=== PATIENT | female | born 1940 | race African-American/Black ===

== ENCOUNTER 2016-11-05 15:47 | Inpatient (IN) | payer MEDICARE ==
[~2016-11-05] VITALS: Ht 157.5 cm; Wt 83.2 kg
--- NOTE | ~2016-11-05 | CON ---
[place], [place] REPORT OF CONSULTATION NAME: AZIZA SIMPSON UNIT #: [id number] ROOM: 404 DOCTOR: SAMMY BUCKNER DPM BIRTHDATE: [birth year] DOS: 11/06/2016 HISTORY OF PRESENT ILLNESS: The patient is a 76-year-old female with a painful swollen left foot and ankle, which has been bothering her since Saturday morning. The patient states it is worse with weightbearing. Patient has no history of gout. PAST MEDICAL HISTORY: Essential hypertension, hypercholesterolemia, hypercoagulable state, moderate protein calorie malnutrition, tobacco abuse. PAST SURGICAL HISTORY: History of fractured left ankle, surgical fixation of medical hardware. SOCIAL HISTORY: History of smoker, half pack per week. Denies illicit drug use or alcohol. FAMILY HISTORY: Father in the age of the 80s. Mother age 80s, cause, old age. ALLERGIES: None. PHYSICAL EXAMINATION: LOWER EXTREMITY EXAMINATION: Pedal pulses palpable. There is edema to the left ankle and dorsal left foot. Mild increase in temperature. No definitive abscess noted. Tenderness noted upon palpation. DIAGNOSTIC DATA: Results of the ankle views and foot views taken yesterday were unremarkable. The patient has pending CT scan. The patient's WBC today was 7.9. Sed rate was 91. ASSESSMENT: Edema, pain, left ankle, possible ____, possible underlying infection to the joint. PLAN: Evaluation and management discussed with the patient and her . TREATMENT OPTIONS: Due to the WBC within normal range, I do not feel that emergency arthrotomy needs to be performed today. We will await on the results of the CT scan. Discussed the case with Dr. Mckenna who may tap the ankle tomorrow to aspirate ankle to evaluate for any signs of infection. We will monitor the patient's case closely. Discussed the possibility of ankle arthrotomy and I and D with the patient and her . [place], [place] REPORT OF CONSULTATION NAME: AZIZA SIMPSON UNIT #: [id number] ROOM: 404 DOCTOR: SAMMY BUCKNER DPM BIRTHDATE: [birth year] SAMMY BUCKNER DPM CM:CONSTR:REPORT OF CONSULTATION 1241 11/06/16 1915 interface
--- NOTE | ~2016-11-05 | PR ---
[place], [place] PROGRESS NOTE NAME: AZIZA SIMPSON [facility] #: [id number] UNIT #: [id number] ROOM: 404 DOCTOR: DEEPAK LEA III, DPM BIRTHDATE: [birth year] DOS: 11/07/2016 TIME OF DICTATION: 12:31 p.m. SUBJECTIVE: A 76-year-old female seen at bedside for followup and reevaluation of left ankle pain. No new issues. OBJECTIVE: Neurovascular status is unchanged. Negative Homans' and negative calf pain. She does have some swelling appreciated as well as an anterior ankle joint effusion to the left ankle. Pain on palpation of the ankle joint. No gross erythema is noted. No gross signs of infection are noted. NEUROLOGIC: Intact protective sensation. ORTHOPEDIC: Muscle strength is maintained. ASSESSMENT: Possible gout, left ankle. TREATMENT PLANS AND RECOMMENDATIONS: Findings as well as prognosis was discussed in detail with the patient. All questions were answered to her apparent satisfaction. A 76-year-old female seen at bedside for evaluation regarding possible gout to the left ankle. CT exam was negative. Her labs have been essentially normal. Most likely is a gouty attack. She does have some circumferential pain to the ankle joint. I discussed the options. I discussed aspirating the ankle joint to guide treatments and recommendations. The patient is in agreement. PROCEDURE: Sterile prep of the ankle joint was performed using Betadine as well as Hibiclens prep. Using an 18-gauge needle, a 10 mL syringe, aspiration of the ankle joint was performed. Approximately 0.5 mL of bloody-tinged serous fluid was removed from the ankle joint. Fluid was sent for both crystal analysis as well as culture and cell count differential. Band-Aid was applied. The patient tolerated the procedure well. Further recommendations will be placed once cultures and a fluid analysis returns. The patient is in agreement. DEEPAK LEA III, DPM CM:PNTRANS [id number] DEEPAK LEA III, DPM 11/07/16 2335 interface
--- NOTE | ~2016-11-05 | PR ---
[place], [place] PROGRESS NOTE NAME: AZIZA SIMPSON [facility] #: [id number] UNIT #: [id number] ROOM: 404 DOCTOR: DUDLEY CORDOVASAMMY Perez BIRTHDATE: [birth year] DOS: 11/08/2016 SUBJECTIVE: The patient presents for followup of painful swollen left ankle. The patient states she feels much improved at this time. The anterior ankle has no near as much pain as it was 2 days ago. OBJECTIVE: There is decreased edema, decreased erythema, no increased temperature, much improved from my evaluation 2 days ago. The patient's blood cultures were negative. The CT scan revealed mild degenerative changes and soft tissue swelling predominantly along the dorsal medial aspect of the mid foot. No acute fracture or malalignment. The patient's fluid aspiration from the ankle performed by Dr. Mckenna yesterday revealed a WBC of 4050, neutrophils of 92, usually aseptic joint is 50,000 or above. So, in my opinion, the count of 4000 may be early infection or an ____ inflammation. They revealed no fluid crystals. The culture of the fluid Gram stain revealed many white blood cells, no microorganisms seen. The preliminary culture showed no bacterial growth. ASSESSMENT: Edema, pain, improving left ankle probable ____. PLAN: Evaluation and management, discussed treatment options with the patient in detail. We will go ahead and proceed with an MRI of the left ankle to verify no evidence of any suggestion of a septic joint. Discussed with the patient if the WBCs and the fluid tap was 50,000 or above, would indicate a septic joint. I ordered blood work to rule out ____ including an additional uric acid, which had already been performed, but I will like to recheck as the inflammation has gone down, the uric acid count in the blood work could increase after the acute inflammatory situation is starting to resolve. Additionally, we will check RA, GAB, additional sed rate and C-reactive protein. We will proceed with the MRI. Discussed the case via telephone with Dr. De La Rosa and Dr. Mckenna who are in agreement with my treatment plan. If there is an abnormality noted on the MRI, possible ankle arthroscopy to be performed to drain the ankle synovial fluid, but at this time, I did not think an emergent situation is evident in a patient who is clinically improving, which is a very good sign. We will recheck the patient tomorrow to ascertain if any additional treatment needs to be performed. Possible Unna boot application tomorrow if warranted, but again the patient is definitely improving. [place], [place] PROGRESS NOTE NAME: AZIZA SIMPSON Chris UNIT #: [id number] ROOM: [facility] DOCTOR: SAMMY BUCKNER DPM BIRTHDATE: [birth year] SAMMY BUCKNER DPM CM:PNTRANS [id number] SAMMY BUCKNER DPM 11/09/16 0654 interface
--- NOTE | ~2016-11-05 | PR ---
[place], [place] PROGRESS NOTE NAME: AZIZA SIMPSON [facility] #: [id number] UNIT #: [id number] ROOM: 404 DOCTOR: DAVIS GAO DPM BIRTHDATE: [birth year] DOS: 11/09/2016 SUBJECTIVE: The patient presents for followup of an erythematous and swollen left ankle. She states the pain has significantly improved, only minimal tenderness is noted at this time. She is able to move the ankle and the foot much better with less discomfort. OBJECTIVE: Neurovascular status is unchanged. There is only minimal edema noted of left foot and ankle with no erythema, no increased temperature, seems like it is improving nicely at this time. No open areas. Significant improvement noted. Again, her aspiration results were noted. MRI was essentially unremarkable. ASSESSMENT: Synovitis, inflammatory arthritis, left ankle with improving edema and pain. PLAN: Evaluation and management. Discussed with the patient, she is doing much better. So I feel at this time from Podiatry standpoint, she be discharged. I do not think she has a septic joint. She is improving nicely and would recommend following up as an outpatient. If she is still here tomorrow, then we can see her, but at this point, I think her ankle has significantly improved with only minimal residual symptoms. DAVIS GAO DPM CM:PJ [id number] DAVIS GAO DPM 11/09/162127 interface
[~2016-11-05 15:47] MED LIST: ATARAX25 MG PO; LIDEX0.05% T; PREDNISONE20 MG PO
[2016-11-05 15:55] VITALS: BP 137/92
[2016-11-05] MEDS ORDERED: LISINOPRIL20 MG PO (15:56)
[2016-11-05] MEDS ORDERED: WARFARIN SOD5 MG PO (15:56)
[2016-11-05] MEDS ORDERED: ATORVASTATIN CA10 M1 PO (15:56)
[2016-11-05] MEDS ORDERED: Diltiazem180 MG PO (15:57)
[2016-11-05 16:30] LABS: BASO % 0.5 % (0.0-1.0); EOS % 0.1 % (1.0-4.0); HEMATOCRIT 39.7 % (37.0-47.0); HEMOGLOBIN 13.1 g/dl (12.0-16.0); IG # 0.1 10*3/uL (0.0-0.1); LYMPH # 0.9 10*3/uL (1.3-4.4); LYMPH % 10.6 % (27.0-41.0); MEAN CELL VOLUME 87.6 fl (81.0-99.0); MEAN CORPUSCULAR HGB 28.9 pg (27.0-31.0); MEAN PLATELET VOLUME 10.3 fl (9.6-12.3); MONO # 0.9 10*3/uL (0.1-1.0); MONO % 11.2 % (3.0-9.0); NEUT # 6.5 10*3/uL (2.3-7.9); PLATELET COUNT AUTOMATED 213 10*3/uL (130-400); RED BLOOD COUNT 4.53 10*6/uL (4.10-5.10); RED CELL DISTRI WIDTH 15.5 % (0-14.5); WHITE BLOOD COUNT 8.4 10*3/uL (4.8-10.8)
[2016-11-05 16:50] LABS: BILIRUBIN, TOTAL 0.6 mg/dl (0.2-1.0); C-REACTIVE PROTEIN 8.65 MG/DL (0-0.3); MAGNESIUM 1.7 mg/dL (1.5-2.1); POTASSIUM 4.2 mmol/L (3.5-5.1); TOTAL PROTEIN 7.7 gm/dL (6.4-8.2); URIC ACID 5.3 mg/dL (2.6-6.0)
[2016-11-05 20:00] VITALS: BP 131/63
[2016-11-05 20:15] VITALS: BP 131/63
[2016-11-05] MEDS ORDERED: COUMADIN5 M2 PO (21:01)
[2016-11-06] VITALS: BP 126/74
[2016-11-06 08:00] VITALS: BP 136/92
[2016-11-06 08:08] LABS: BASO % 0.5 % (0.0-1.0); EOS % 0.3 % (1.0-4.0); HEMATOCRIT 37.8 % (37.0-47.0); HEMOGLOBIN 12.2 g/dl (12.0-16.0); LYMPH # 1.2 10*3/uL (1.3-4.4); LYMPH % 15.3 % (27.0-41.0); MEAN CELL VOLUME 87.5 fl (81.0-99.0); MEAN CORPUSCULAR HGB 28.2 pg (27.0-31.0); MEAN CORPUSCULAR HGB CONC 32.3 g/dl (33.0-37.0); MEAN PLATELET VOLUME 10.9 fl (9.6-12.3); MONO # 1.1 10*3/uL (0.1-1.0); MONO % 13.8 % (3.0-9.0); NEUT # 5.5 10*3/uL (2.3-7.9); NEUT % 69.8 % (47.0-73.0); PLATELET COUNT AUTOMATED 200 10*3/uL (130-400); RED BLOOD COUNT 4.32 10*6/uL (4.10-5.10); RED CELL DISTRI WIDTH 15.5 % (0-14.5); WHITE BLOOD COUNT 7.9 10*3/uL (4.8-10.8)
[2016-11-06 08:26] LABS: HEMOGLOBIN A1c 6.5 % (4.8-5.6)
[2016-11-06 08:41] LABS: FREE T4 1.17 ng/dl (0.76-1.46); MAGNESIUM 2.1 mg/dL (1.5-2.1); PHOSPHOROUS 2.9 mg/dL (2.5-4.9)
[2016-11-06 08:48] LABS: THYROID STIM HORMONE (HS) 0.386 uIU/ml (0.358-4.75)
[2016-11-06 09:11] LABS: INTERNATIONAL NORM RATIO 3.7 (2.0-3.5); PROTHROMBIN TIME 42.7 SECONDS (9.0-12.4)
[2016-11-06 09:33] LABS: VITAMIN D, 25-HYDROXY 6.4 ng/mL (30-100)
[2016-11-06 09:34] LABS: FOLIC ACID 12.75 ng/mL (>5.38)
[2016-11-06 12:00] VITALS: BP 133/82
[2016-11-06 16:00] VITALS: BP 150/83
[2016-11-06 20:03] VITALS: BP 134/81
[2016-11-07] VITALS: BP 134/75
[2016-11-07 08:00] VITALS: BP 131/83; BP 144/70
[2016-11-07 12:00] VITALS: BP 171/94
[2016-11-07 12:54] LABS: BODY FLUID RBC 48000 /uL; BODY FLUID WBC 4050 /uL
[2016-11-07 13:34] LABS: BF MACROPHAGES 2 %; BF MONOCYTES 6 %; BF NEUTROPHILS 92 %
[2016-11-07 13:37] LABS: BODY FLUID TYPE SYNOVIAL
[2016-11-07 16:00] VITALS: BP 170/91
[2016-11-07 18:49] VITALS: BP 166/90
[2016-11-07 20:00] VITALS: BP 131/62; BP 158/86
[2016-11-08] VITALS: BP 126/90
[2016-11-08 07:30] LABS: ALBUMIN 2.4 gm/dl (3.1-4.5); POTASSIUM 3.7 mmol/L (3.5-5.1)
[2016-11-08 07:32] LABS: INTERNATIONAL NORM RATIO 1.8 (2.0-3.5); PROTHROMBIN TIME 19.8 SECONDS (9.0-12.4)
[2016-11-08 07:35] LABS: BILIRUBIN, TOTAL 0.7 mg/dl (0.2-1.0)
[2016-11-08 08:00] VITALS: BP 153/79
[2016-11-08 12:00] VITALS: BP 147/65
[2016-11-08 14:07] LABS: URIC ACID 2.4 mg/dL (2.6-6.0)
[2016-11-08 14:09] LABS: C-REACTIVE PROTEIN 22.4 MG/DL (0-0.3)
[2016-11-08 16:00] VITALS: BP 173/96
[2016-11-08 18:24] VITALS: BP 152/84
[2016-11-08 20:00] VITALS: BP 164/93
[2016-11-09] VITALS: BP 168/98
[2016-11-09 04:00] VITALS: BP 163/96
[2016-11-09 06:14] LABS: RHEUMATOID ARTHRITIS FACTOR 22.8 IU/mL (0.0-13.9)
[2016-11-09 07:05] LABS: POTASSIUM 3.3 mmol/L (3.5-5.1)
[2016-11-09 08:00] VITALS: BP 151/92
[2016-11-09 12:00] VITALS: BP 149/98
[2016-11-09] MEDS ORDERED: ROBAXIN-750750 MG PO (14:15)
[2016-11-09] MEDS ORDERED: VOLTAREN GEL1% T (14:15)
[2016-11-09] MEDS ORDERED: ACETAMINOPHEN-H1 TA2 PO (14:15)
== END 2016-11-09 15:48 | disposition home or self-care (01) | DRG 871 ==
LOC: ED 15:47 → EDHOLD 18:21 → 4E 18:21
PROVIDERS: Emergency Medicine; Internal Medicine; Internal Medicine Hospice and Palliative Medicine; Podiatrist; Podiatrist Foot & Ankle Surgery
PROC: 0S9G3ZX Drainage of Left Ankle Joint, Percutaneous Approach, Diagnostic (ICD-10-PCS; principal; 2016-11-07)
DX: A41.9 Sepsis, unspecified organism (principal); N17.0 Acute kidney failure with tubular necrosis; E44.0 Moderate protein-calorie malnutrition; D68.59 Other primary thrombophilia; M00.9 Pyogenic arthritis, unspecified; R65.20 Severe sepsis without septic shock; M65.9 Synovitis and tenosynovitis, unspecified; I10 Essential (primary) hypertension; E78.00 Pure hypercholesterolemia, unspecified; F17.210 Nicotine dependence, cigarettes, uncomplicated; M13.879 Other specified arthritis, unspecified ankle and foot; D72.810 Lymphocytopenia; R73.9 Hyperglycemia, unspecified; E55.9 Vitamin D deficiency, unspecified; Z71.6 Tobacco abuse counseling; Z79.01 Long term (current) use of anticoagulants; Z79.899 Other long term (current) drug therapy

== ENCOUNTER 2016-11-12 19:08 | Inpatient (IN) | payer MEDICARE ==
[~2016-11-12] VITALS: Ht 158.7 cm; Wt 85.5 kg
[~2016-11-12 19:08] MED LIST changes: +ACETAMINOPHEN-H1 TA2 PO; +ATORVASTATIN CA10 M1 PO; +COUMADIN5 M2 PO; +Diltiazem180 MG PO; +LISINOPRIL20 MG PO; +ROBAXIN-750750 MG PO; +VOLTAREN GEL1% T; +WARFARIN SOD5 MG PO
[2016-11-12 19:17] VITALS: BP 163/84
[2016-11-12 20:18] LABS: BASO # 0.1 10*3/uL (0.0-0.1); BASO % 0.4 % (0.0-1.0); EOS # 0.1 10*3/uL (0.0-0.4); EOS % 0.7 % (1.0-4.0); HEMATOCRIT 34.4 % (37.0-47.0); HEMOGLOBIN 11.1 g/dl (12.0-16.0); IG # 0.1 10*3/uL (0.0-0.1); LYMPH % 7.9 % (27.0-41.0); MEAN CELL VOLUME 88.2 fl (81.0-99.0); MEAN CORPUSCULAR HGB 28.5 pg (27.0-31.0); MEAN CORPUSCULAR HGB CONC 32.3 g/dl (33.0-37.0); MEAN PLATELET VOLUME 10.9 fl (9.6-12.3); MONO # 1.1 10*3/uL (0.1-1.0); MONO % 9.4 % (3.0-9.0); NEUT # 9.8 10*3/uL (2.3-7.9); NEUT % 80.7 % (47.0-73.0); PLATELET COUNT AUTOMATED 239 10*3/uL (130-400); RED CELL DISTRI WIDTH 15.9 % (0-14.5); WHITE BLOOD COUNT 12.1 10*3/uL (4.8-10.8)
[2016-11-12 20:27] LABS: PROTHROMBIN TIME 21.9 SECONDS (9.0-12.4)
[2016-11-12 20:35] LABS: ALBUMIN 2.2 gm/dl (3.1-4.5); BILIRUBIN, TOTAL 0.4 mg/dl (0.2-1.0); POTASSIUM 3.8 mmol/L (3.5-5.1); TOTAL PROTEIN 7.7 gm/dL (6.4-8.2)
[2016-11-13] VITALS: BP 178/88
[2016-11-13 06:15] LABS: BASO % 0.3 % (0.0-1.0); EOS # 0.1 10*3/uL (0.0-0.4); EOS % 0.8 % (1.0-4.0); HEMATOCRIT 32.7 % (37.0-47.0); HEMOGLOBIN 10.6 g/dl (12.0-16.0); IG # 0.1 10*3/uL (0.0-0.1); LYMPH # 1.2 10*3/uL (1.3-4.4); LYMPH % 10.4 % (27.0-41.0); MEAN CELL VOLUME 87.9 fl (81.0-99.0); MEAN CORPUSCULAR HGB 28.5 pg (27.0-31.0); MEAN CORPUSCULAR HGB CONC 32.4 g/dl (33.0-37.0); MEAN PLATELET VOLUME 11.1 fl (9.6-12.3); MONO # 1.2 10*3/uL (0.1-1.0); MONO % 9.8 % (3.0-9.0); NEUT # 9.3 10*3/uL (2.3-7.9); PLATELET COUNT AUTOMATED 244 10*3/uL (130-400); RED BLOOD COUNT 3.72 10*6/uL (4.10-5.10); RED CELL DISTRI WIDTH 15.6 % (0-14.5); WHITE BLOOD COUNT 11.9 10*3/uL (4.8-10.8)
[2016-11-13 06:39] LABS: ALBUMIN 2.2 gm/dl (3.1-4.5); BILIRUBIN, TOTAL 0.6 mg/dl (0.2-1.0); MAGNESIUM 1.9 mg/dL (1.5-2.1); POTASSIUM 3.9 mmol/L (3.5-5.1); TOTAL PROTEIN 7.3 gm/dL (6.4-8.2)
[2016-11-13 06:48] LABS: PROTHROMBIN TIME 22.5 SECONDS (9.0-12.4)
[2016-11-13 08:00] VITALS: BP 154/84
[2016-11-13 13:07] VITALS: BP 154/84
[2016-11-13 16:00] VITALS: BP 135/83
[2016-11-13 20:00] VITALS: BP 152/86
[2016-11-14] VITALS: BP 151/89
[2016-11-14 06:15] LABS: BASO % 0.4 % (0.0-1.0); EOS # 0.1 10*3/uL (0.0-0.4); EOS % 0.6 % (1.0-4.0); HEMATOCRIT 30.6 % (37.0-47.0); HEMOGLOBIN 9.9 g/dl (12.0-16.0); IG # 0.1 10*3/uL (0.0-0.1); LYMPH # 1.4 10*3/uL (1.3-4.4); LYMPH % 12.8 % (27.0-41.0); MEAN CELL VOLUME 88.7 fl (81.0-99.0); MEAN CORPUSCULAR HGB 28.7 pg (27.0-31.0); MEAN CORPUSCULAR HGB CONC 32.4 g/dl (33.0-37.0); MEAN PLATELET VOLUME 11.1 fl (9.6-12.3); MONO # 1.2 10*3/uL (0.1-1.0); MONO % 10.8 % (3.0-9.0); NEUT # 7.9 10*3/uL (2.3-7.9); NEUT % 74.4 % (47.0-73.0); PLATELET COUNT AUTOMATED 239 10*3/uL (130-400); RED BLOOD COUNT 3.45 10*6/uL (4.10-5.10); RED CELL DISTRI WIDTH 15.7 % (0-14.5); WHITE BLOOD COUNT 10.7 10*3/uL (4.8-10.8)
[2016-11-14 06:23] LABS: BUN 11 mg/dl (7-24); CARBON DIOXIDE 29 mmol/L (21-32); CHLORIDE 105 mmol/L (98-107); EST GLOM FILT AFRICAN AMERICAN > 60 ml/min; GLUCOSE 100 mg/dL (65-99); POTASSIUM 3.6 mmol/L (3.5-5.1); SODIUM 142 mmol/L (136-145)
[2016-11-14 07:06] LABS: INTERNATIONAL NORM RATIO 2.2 (2.0-3.5); PROTHROMBIN TIME 24.1 SECONDS (9.0-12.4)
[2016-11-14 08:00] VITALS: BP 156/92
[2016-11-14 12:00] VITALS: BP 150/88
[2016-11-14 16:00] VITALS: BP 141/74
[2016-11-14 20:00] VITALS: BP 134/83
[2016-11-15] VITALS: BP 156/91
[2016-11-15 08:00] VITALS: BP 139/89
[2016-11-15 08:57] LABS: PROTHROMBIN TIME 46.7 SECONDS (9.0-12.4)
[2016-11-15] MEDS ORDERED: VITAMIN D50000 I3 PO (11:00)
[2016-11-15] MEDS ORDERED: PREDNISONE50 MG PO (11:00)
[2016-11-15] MEDS ORDERED: COLCHICINE0.6 M1 PO (12:58)
== END 2016-11-15 13:08 | disposition home or self-care (01) | DRG 871 ==
LOC: ED 19:08 → 4E 22:15 → EDHOLD 22:15 → 4E 23:38
PROVIDERS: Internal Medicine; Internal Medicine Hospice and Palliative Medicine; Physician Assistant
DX: A41.9 Sepsis, unspecified organism (principal); N17.0 Acute kidney failure with tubular necrosis; E43 Unspecified severe protein-calorie malnutrition; D64.9 Anemia, unspecified; D68.59 Other primary thrombophilia; L03.113 Cellulitis of right upper limb; M02.331 Reiter's disease, right wrist; R65.20 Severe sepsis without septic shock; I10 Essential (primary) hypertension; E78.00 Pure hypercholesterolemia, unspecified; F17.210 Nicotine dependence, cigarettes, uncomplicated; R79.82 Elevated C-reactive protein (CRP); E66.09 Other obesity due to excess calories; E55.9 Vitamin D deficiency, unspecified; Z68.33 Body mass index [BMI] 33.0-33.9, adult; M13.80 Other specified arthritis, unspecified site

== ENCOUNTER 2016-12-27 11:54 | Emergency (ER) | payer MEDICARE ==
[~2016-12-27] VITALS: Ht 157.4 cm; Wt 83.9 kg
[~2016-12-27 11:54] MED LIST changes: +COLCHICINE0.6 M1 PO; +PREDNISONE50 MG PO; +VITAMIN D50000 I3 PO
[2016-12-27] MEDS ORDERED: COLCHICINE0.6 M2 PO (12:55)
[2016-12-27] MEDS ORDERED: COLCHICINE0.6 M1 PO (12:55)
== END 2016-12-27 13:11 | disposition home or self-care (01) ==
LOC: ED 11:54
DX: M10.9 Gout, unspecified (principal); M25.532 Pain in left wrist; F17.200 Nicotine dependence, unspecified, uncomplicated; Z79.01 Long term (current) use of anticoagulants

== ENCOUNTER 2019-02-21 12:52 | Inpatient (IN) | payer MEDICARE ==
[~2019-02-21] VITALS: Ht 157.4 cm; Wt 79.4 kg
--- NOTE | ~2019-02-21 | CON ---
[place], [place] REPORT OF CONSULTATION NAME: AZIZA SIMPSON UNIT #: [id number] ROOM: 512 DOCTOR: THANIA SIMPSON DO BIRTHDATE: [birth year] DOS: 02/23/2019 REASON FOR CONSULTATION: Question chronic kidney disease. HISTORY OF PRESENT ILLNESS: An 79-year-old female who has a prior history of COPD, hypertension, gout, DJD, hyperlipidemia, history of hypercoagulable disorder as well, details on this are unclear, vitamin D deficiency. Presented to this institution on February 21 with wheezing and shortness of breath with cough productive of mucus for approximately 2-3 days prior to admission, has since been diagnosed with a COPD flare, has been treated with DuoNeb and Solu-Medrol with improvement in her symptomatology, is feeling considerably better from this aspect. She has a question of underlying chronic kidney disease as well and is in fact scheduled to see Dr. Barnes in the office in March and we have been asked to see this patient in regards to the above. Baseline creatinine is somewhat unclear, but what precipitated the office referral was outpatient labs performed on November 06 that showed a creatinine of 1.6. Chemistries at that time were otherwise unremarkable. Also, noted to be vitamin D deficient. Scant labs are available through the [facility] system, but was noted to have a creatinine of 1.59 on this admission, for an unclear reason to 2.04 yesterday and then 1.78 today. Previous to that, she had been met at this institution twice in October 2016 for what was ultimately felt to be gout involving her foot. When admitted on 11/05/2016, creatinine was 1.57, but by discharge improved to 1.11. Details of what led to this improvement are not clear, but she may have received IV fluids during that time and was readmitted on, I believe, November 12 through the with a creatinine of 1.25 and then improved to 1.04 again with use of IV fluids. She had been on lisinopril 20 mg daily as a longstanding medication. I am unclear if she received it during either of the above noted stays, as she was discharged from the hospital on her outpatient dose of lisinopril. Since being admitted here, lisinopril has been held. She has not been exposed to any other nephrotoxic agents that I can ascertain other than Voltaren gel which she states she uses sparingly since the above noted stays in October 2016, basically uses it once a week to every other week at the most. Denies use of NSAIDs. She believes her blood pressure has been under good control. I note an echocardiogram performed during this admission showing a normal left ventricular size with EF of 55%, though the left atrium was severely dilated. She denies unintentional weight loss, unexplained bone pain or fractures. She denies hematuria, froth in her urine, symptoms of colic or passage of calculi. Does note nocturia of relatively recent onset, but otherwise denies any voiding difficulties. She denies rash, symptoms of Raynaud's or joint effusions. She denies myalgias other than her left knee, where she has chronic DJD. She denies lower extremity edema. She denies cough, hemoptysis, chest pain, palpitations, presyncope, claudication, hematochezia, melena, chronic issues with nausea, vomiting, anorexia. She has not had any prior imaging studies as relates to her kidneys and I do not see any prior available urinalysis. No history of diabetes per the patient. She could be a prediabetic based on several fasting blood sugars that are greater than 100, but not in the diabetic range. PAST MEDICAL HISTORY: See above. [place], [place] REPORT OF CONSULTATION NAME: AZIZA SIMPSON UNIT #: [id number] ROOM: [facility] DOCTOR: THANIA SIMPSON DO BIRTHDATE: [birth year] ALLERGIES: No known drug allergies. CURRENT MEDICATIONS: Solu-Medrol 30 mg IV q.12 hours, diltiazem 240 mg daily, Mucinex 1200 mg q.12 hours, Coumadin as directed, Voltaren gel topically q.i.d., atorvastatin 10 mg a day, Nicoderm patch topically daily, Zithromax IV daily, Rocephin 1 gram IV daily, normal saline IV 100 mL an hour. SOCIAL HISTORY: She resides at home. FAMILY HISTORY: Noncontributory. REVIEW OF SYSTEMS: Please see HPI. Full 10-point review of systems was performed with 10 of the above noted measures were marked as in HPI. PHYSICAL EXAMINATION: VITAL SIGNS: Blood pressure 133/66, pulse 92, respiratory rate 18, temperature is 98.1 degrees Fahrenheit. GENERAL APPEARANCE: A well-appearing, obese female, awake, alert, oriented x 3, currently in no apparent distress. HEENT: Conjunctivae are pink and moist. Oral mucosa pink and moist. Full upper and lower dentures noted to be in place. NECK: No carotid bruit, thyromegaly, adenopathy. There is no JVD appreciated. HEART: Regular without an S3, rub, murmur or heave noted. LUNGS: Exhibit mild expiratory wheezing, otherwise clear to auscultation and percussion. ABDOMEN: Soft, positive bowel sounds x 4, nontender, without CVA tenderness noted. No rebound, guarding or rigidity noted. No flank bruits appreciated. NEUROLOGIC: Grossly nonfocal. EXTREMITIES: No clubbing, cyanosis. Trace pedal edema noted. Pulses are +2 bilaterally with +1 bilateral dorsalis pedis. SKIN: Warm, dry without rash, ulcers, lesions, or petechiae appreciated. LABORATORY DATA: From today, sodium is 143, potassium 3.9, chloride 110, CO2 of 22, BUN 38, creatinine 1.78, glucose 149, calcium is 8.9. TSH is 0.079, free T4 is 1.08. Echocardiogram is as noted. ASSESSMENT: 1. Question chronic kidney disease, baseline function is unclear. Currently, electrolytes are satisfactory, volume status is satisfactory. 2. Hypertension. Blood pressure under satisfactory control. 3. Acute exacerbation of chronic obstructive pulmonary disease, being managed by Pulmonary Critical Care Medicine. RECOMMENDATIONS: Agree with holding lisinopril for the moment. We will follow intake and output as well as renal function and electrolytes closely. Check renal ultrasound to evaluate renal size and symmetry. Check urinalysis. Further plans pending the above. Thank you for allowing us to participate in the care of the patient. [place], [place] REPORT OF CONSULTATION NAME: AZIZA SIMPSON UNIT #: [id number] ROOM: 512 DOCTOR: THANIA SIMPSON DO BIRTHDATE: [birth year] THANIA SIMPSON DO CM:CONSTR:REPORT OF CONSULTATION 1310 02/23/19 1576 interface
--- NOTE | ~2019-02-21 | PR ---
[place], [place] PROGRESS NOTE NAME: AZIZA SIMPSON UNIT #: [id number] ROOM: 512 DOCTOR: LINDSAY ANJU BIRTHDATE: [birth year] DOS: 02/24/2019 PULMONARY PROGRESS NOTE SUBJECTIVE: The patient was noted with no complaints today, resting comfortably in bed. PHYSICAL EXAMINATION: GENERAL: She was comfortably sitting in bed this morning without any acute distress. VITAL SIGNS: Normal temperature, respiratory rate 20, heart rate 91, blood pressure 148/72, pulse ox saturation on room air was 97%. HEENT: Shows head was atraumatic, normocephalic. Eyes nonicterus. NECK: Supple. CARDIOVASCULAR: S1, S2 audible. LUNGS: Diminished breath sounds bilaterally with trace wheezing noted. No crackles at this present time. ABDOMEN: Soft, nontender. EXTREMITIES: No new changes. LABORATORY DATA: BMP: Sodium 146, potassium 4.2, chloride 114, carbon dioxide 22, BUN 38, creatinine 1.75. PT/INR is noted to be 4.5. IMPRESSION: 1. Acute exacerbation of chronic obstructive pulmonary disease. 2. Acute kidney injury superimposed on chronic kidney disease, which is improving. PLAN: No changes in the plan of care at this time was recommended. The patient can be discharged from the Pulmonary standpoint. Anju Montoya DO [place], [place] PROGRESS NOTE NAME: AZIZA SIMPSON UNIT #: [id number] ROOM: 512 DOCTOR: MONTOYA ANJU BIRTHDATE: [birth year] JESSICA SANCHES MD CM:PNKENNETH [id number] ANJU MONTOYA 02/25/19 1820 interface
--- NOTE | ~2019-02-21 | PR ---
[place], [place] PROGRESS NOTE NAME: AZIZA SIMPSON [facility] #: [id number] UNIT #: [id number] ROOM: 512 DOCTOR: MYRON NAPOLES MD,JESSICA BIRTHDATE: [birth year] DOS: 02/23/2019 SUBJECTIVE: She has been noted comfortable at this time, reduction in respiratory symptom was continue. Denies symptoms of fever or chills or any hemoptysis. The overall respiratory symptom continued since hospitalization. PHYSICAL EXAMINATION: GENERAL: She was comfortably sitting on the bed this morning of assessment without any distress. VITAL SIGNS: Recorded this morning with the nursing staff normal temperature, respiratory rate 18, heart rate 88, blood pressure 131/97. Pulse oxygen saturation on room air was 98% saturation. HEAD, EYES, EARS, NOSE, AND THROAT: Examination shows head was atraumatic. Eyes nonicterus. NECK: Supple. CARDIOVASCULAR SYSTEM: S1, S2 audible. LUNGS: Without any wheeze or crackle at the present time, moderate decreased breath sounds in the lungs bilaterally. ABDOMEN: Soft, nontender. EXTREMITIES: No new change. LABORATORY DATA: Culture of the sputum improvement noted normal hany from yesterday. Final results were pending. BMP: BUN 38, creatinine 1.78. PT/INR noted 4.4. IMPRESSION: The patient with resolving acute exacerbation of chronic obstructive pulmonary disease, improving acute kidney injury superimposed on chronic kidney disease. PLAN OF MANAGEMENT: No changes in the plan of care at this time was recommended. Other therapy plan as previously will be continued. Usual care. JESSICA SANCHES MD CM:PNTRANS 1220 1552 JESSICA NAPOLES MD 02/23/19 1550 interface
--- NOTE | ~2019-02-21 | EKG ---
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
--- NOTE | ~2019-02-21 | EKG ---
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
--- NOTE | ~2019-02-21 | CON ---
[place], [place] REPORT OF CONSULTATION NAME: [facility]PSON [id number] UNIT #: [id number] ROOM: 512 DOCTOR: JESSICA TALLEY MD BIRTHDATE: [birth year] DOS: 02/22/2019 PULMONARY CONSULTATION, EVALUATION, AND MANAGEMENT CONSULTATION REQUESTED BY: Hospitalist service. REASON FOR CONSULTATION: Assessment of COPD. HISTORY OF PRESENT ILLNESS: This is an 79-year-old female patient, known to me from the past, presented to the hospital, being admitted under the care of hospitalist service on the date of 02/21/2019. The patient stated that she has been noted acutely for the past 3 days, taking a nebulizer treatment and thinking that she may not need any intervention. She has not been noted improvement in respiratory symptoms with increased shortness of breath reported requiring assessment in the Emergency Room on 02/21/2019 and then admitted to the hospital for further care. She has been noted cough with intermittent sputum expectoration, which is noted to be white or yellowish in color. She denies symptoms of chest pain, wheezing with current symptoms. No symptoms of hemoptysis. The patient has been assessed in the Emergency Room and admitted to the hospital under care with acute exacerbation of COPD. REVIEW OF SYSTEMS: CONSTITUTIONAL SYMPTOMS: Fatigue and tiredness noted. Denies symptoms of fever or chills. EYES: Denies any burning, redness, or tenderness. EARS, NOSE, THROAT SYMPTOMS: Denies sore throat, hoarseness, otalgia, postnasal drainage or epistaxis. CARDIOVASCULAR SYSTEM: Denies angina pain, edema, pain of the lower extremity. GASTROINTESTINAL SYMPTOM: Denies dysphagia, nausea, vomiting, diarrhea, abdominal pain, hematemesis, melena, or hematochezia. GENITOURINARY SYMPTOM: No dysuria, suprapubic pain, hematuria or flank pain. MUSCULOSKELETAL SYMPTOM: No acute joint pain, redness, or tenderness. SKIN: No lesions or rashes reported. CENTRAL NERVOUS SYSTEM: General weakness noted. No symptoms of seizures, tingling sensation of the extremities. Remaining systems were reviewed. They were noted all negative. PAST MEDICAL HISTORY: 1. History of chronic obstructive pulmonary disease, treated with nebulized bronchodilators. 2. Nicotine dependence. 3. Essential hypertension. 4. Gout. 5. Hypercoagulable status, details were unknown. 6. Vitamin D deficiency. PAST SURGICAL HISTORY: Culture reported for left ankle surgery. SOCIAL HISTORY: The patient stated that she is , lives at home. She has 2 children. Denies alcohol use or illicit drug use. Tobacco user, reported by [place], [place] REPORT OF CONSULTATION NAME: AZIZA SIMPSON UNIT #: [id number] ROOM: 512 DOCTOR: JESSICA TALLEY MD BIRTHDATE: [birth year] the patient started tobacco use at a younger age, a pack of cigarettes per day, but recently smoking half a pack of cigarettes per day. FAMILY HISTORY: The patient's father at age of 8080 years old, complication of myocardial infarction. Mother at the age of 80 years secondary to breast cancer. MEDICATIONS: Listed as use of Lipitor, Voltaren cream, diltiazem, lisinopril, and Coumadin. Current medication administered on this hospitalization were reviewed as use of Cardizem-CD, Solu-Medrol 60 mg b.i.d., Mucinex 100 mg p.o. b.i.d., diclofenac p.r.n. use, nicotine 21 mg daily, IV Rocephin, and Zithromax. ALLERGIES: The patient noted as no known drug allergies. PHYSICAL EXAMINATION: GENERAL: An 79-year-old female noted to be awake and alert without any distress this morning of assessment. Height of 5 feet 2 inches, weight of 175 pounds with BMI of 32. VITAL SIGNS: Recorded shows a normal temperature, respiratory rate 17-20, heart rate of 90-101, blood pressure 140/70-150/83. The pulse ox saturation recorded as 96% saturation at rest on room air. HEAD, EYES, EARS, NOSE, AND THROAT: Examination shows head was atraumatic. Eyes nonicterus. NECK: Supple. CARDIOVASCULAR SYSTEM: S1, S2 audible. LUNGS: Noted decreased breath sounds bilaterally, scattered expiratory wheezing at this time. There were no crackles. ABDOMEN: Soft, flat, nontender, bowel sounds present. EXTREMITIES: No acute edema. MUSCULOSKELETAL: Without any deformities. CENTRAL NERVOUS SYSTEM: Noted without any focal neurologic deficit. Cranial nerves 2-12 intact. LABORATORY DATA: CBC from yesterday was noted as a normal CBC. PT/PTT was noted yesterday. INR therapeutic at 2.7, PTT of 40. Lactic acid 0.9 yesterday. CMP done yesterday, BUN 22, creatinine 1.59. CBC that was done this morning, WBC count 12.9, hemoglobin and hematocrit normal, platelet count normal. CMP this morning, BUN 33, creatinine 2.04. Glucose 258. PT/INR repeated again this morning was noted at 2.9, which is in therapeutic range. DIAGNOSTIC STUDIES: Chest x-ray 1 view done in emergency room yesterday was reviewed shows no acute pulmonary infiltration. Hyperinflation changes were noted. IMPRESSION: 1. The patient currently admitted to the hospital with acute exacerbation of chronic obstructive pulmonary disease, acute tracheobronchitis, noted to be worsening at this time, etiology unclear and undetermined. [place], [place] REPORT OF CONSULTATION NAME: AZIZA SIMPSON UNIT #: [id number] ROOM: [facility] DOCTOR: MYRON NAPOLES MD,JESSICA BIRTHDATE: [birth year] 2. Chronic nicotine dependence was still noted. 3. Acute bronchitis. PLAN OF TREATMENT: At this time, dose of Solu-Medrol will be decreased to 30 mg b.i.d. Bronchodilator will be continued. Acute kidney function, the patient receiving intravenous fluid. In case of worsening, consider consultation with Nephrology Services. In the meantime, continue the therapy, plan of management, care plan and treatment. Usual care. Discussion was done with the patient for the tobacco cessation for future and counseling provided. Other supportive plan of management to be continued as ongoing. Continue anticoagulation with Coumadin, which remained in therapeutic range. Followup for possible drug interaction with Coumadin toxicity with daily labs monitoring. JESSICA SANCHES MD CM:CONSTR:REPORT OF CONSULTATION [id number] 03/03/19 1046 interface
--- NOTE | ~2019-02-21 | PR ---
[place], [place] PROGRESS NOTE [id number] UNIT #: [id number] ROOM: 512 DOCTOR: JESSICA TALLEY MD BIRTHDATE: [birth year] DOS: 02/24/2019 PULMONARY PROGRESS NOTE SUBJECTIVE: The patient is independently seen and examined. She has been noted with continued resolution and improvement in respiratory symptoms, gradually progressive. There were no symptoms of chest pain reported. Coughing, shortness of breath, wheezing continued to resolve progressively. PHYSICAL EXAMINATION: GENERAL: The patient is comfortably resting at this time on the bed. VITAL SIGNS: Respiratory rate 20, heart rate 91, blood pressure 148/72. Pulse oxygen saturation on room air 97% saturation. HEENT: Shows head was atraumatic. Eyes nonicterus. NECK: Supple. CARDIOVASCULAR SYSTEM: S1, S2 audible. LUNGS: Mild to moderate decreased breath sounds in the lungs were noted bilaterally. ABDOMEN: Soft, nontender. Bowel sounds present. EXTREMITIES: No acute change. LABORATORY DATA: PT/INR noted 4.5, which is above the therapeutic range. Culture of the sputum from 02/22/2019 noted normal hany. IMPRESSION: 1. The patient with resolving acute exacerbation of chronic obstructive pulmonary disease and acute tracheobronchitis gradually and progressively. 2. The patient with chronic kidney disease, acute kidney injury, resolving as well. PLAN OF THERAPY: No change from pulmonary standpoint. Discharge planning to be done per primary care attending. No change in treatment would be advised. Post-discharge, the patient will require tapering dose of prednisone. ADDENDUM The patient was independently seen and examined in [id number] encounter, history was confirmed. Physical examination was performed. Labs were reviewed. Assessment and management of the patient today's visit was personally completed. Note done by the medical cost consultant was approved. [place], [place] PROGRESS NOTE NAME: AZIZA SIMPSON UNIT #: [id number] ROOM: 512 DOCTOR: EJSSICA TALLEY MD BIRTHDATE: [birth year] JESSICA SANCHES MD CM:PNTRANS [id number] JESSICA NAPOLES MD 02/27/19 0908 interface
--- NOTE | ~2019-02-21 | EKG ---
[place], [place] ELECTROCARDIOGRAM REPORT NAME: AZIZA SIMPSON UNIT #: [id number] ROOM: 512 DOCTOR: WEST DRAFT REPORT BIRTHDATE: [birth year] [facility] Test Date: 2019-02-21 Test Time: 19:21:00 Pat Name: AZIZA SIMPSON Department: Room: 512 Gender: F Risk Officer: Roxanna Phillips : 1940 Requested By: PATITO BAR Order Number: [id number] Reading MD: Shaheen Brown MD Measurements Intervals [place] Rate: 78 P: 47 KS: 191 QRS: -32 QRSD: 83 T: 53 QT: 381 QTc: 434 Interpretive Statements Sinus rhythm Left axis deviation Abnormal R-wave progression, late transition Electronically Signed On 02-22-2019 11:42:19 PDT by Shaheen Brown MD CM:EKGRPT:ELECTROCARDIOGRAM REPORT [id number] PATITO DODSON DRAFT REPORT PATITO BAR MD
[~2019-02-21 12:52] MED LIST changes: +COLCHICINE0.6 M2 PO
[2019-02-21 12:54] VITALS: BP 155/79
[2019-02-21 13:27] LABS: BASO % 0.4 % (0.0-1.0); EOS # 0.2 10*3/uL (0.0-0.4); EOS % 1.7 % (1.0-4.0); HEMATOCRIT 44.7 % (37.0-47.0); HEMOGLOBIN 14.4 g/dl (12.0-16.0); LYMPH # 0.9 10*3/uL (1.3-4.4); LYMPH % 8.6 % (27.0-41.0); MEAN CELL VOLUME 90.3 fl (81.0-99.0); MEAN CORPUSCULAR HGB 29.1 pg (27.0-31.0); MEAN CORPUSCULAR HGB CONC 32.2 g/dl (33.0-37.0); MEAN PLATELET VOLUME 10.6 fl (9.6-12.3); MONO # 0.6 10*3/uL (0.1-1.0); MONO % 6.3 % (3.0-9.0); NEUT # 8.5 10*3/uL (2.3-7.9); NEUT % 82.7 % (47.0-73.0); PLATELET COUNT AUTOMATED 159 10*3/uL (130-400); RED BLOOD COUNT 4.95 10*6/uL (4.10-5.10); RED CELL DISTRI WIDTH 14.2 % (0-14.5); WHITE BLOOD COUNT 10.2 10*3/uL (4.8-10.8)
[2019-02-21 13:36] LABS: ACT PARTIAL THROMBO TIME 40.2 SECONDS (20.0-32.1); INTERNATIONAL NORM RATIO 2.7 (2.0-3.5)
[2019-02-21 13:43] LABS: ALBUMIN 3.7 gm/dl (3.1-4.5); ALKALINE PHOSPHATASE 110 U/L (45-117); BUN 22 mg/dl (7-24); CHLORIDE 106 mmol/L (98-107); CREATININE 1.59 mg/dL (0.55-1.02); SGOT/AST 21 IU/L (3-35); SGPT/ALT 19 U/L (12-78); SODIUM 139 mmol/L (136-145); TOTAL PROTEIN 7.8 gm/dL (6.4-8.2)
[2019-02-21 13:44] LABS: TROPONIN I < 0.015 ng/ml (<0.045)
[2019-02-21 14:30] VITALS: BP 154/78
[2019-02-21 15:40] VITALS: BP 144/59
[2019-02-21] MEDS ORDERED: ATORVASTATIN CA20 M1 PO (17:05)
[2019-02-21] MEDS ORDERED: DILTIAZEM ER240 M1 PO (17:07)
[2019-02-21] MEDS ORDERED: JANTOVEN6 M1 PO (17:11)
[2019-02-21] MEDS ORDERED: Coumadin5 MG PO (17:12)
[2019-02-21 21:02] VITALS: BP 150/66
[2019-02-22] VITALS: BP 158/83
[2019-02-22 06:10] LABS: HEMATOCRIT 40.5 % (37.0-47.0); MEAN CELL VOLUME 90.8 fl (81.0-99.0); MEAN CORPUSCULAR HGB 29.1 pg (27.0-31.0); MEAN CORPUSCULAR HGB CONC 32.1 g/dl (33.0-37.0); MEAN PLATELET VOLUME 10.8 fl (9.6-12.3); PLATELET COUNT AUTOMATED 142 10*3/uL (130-400); RED BLOOD COUNT 4.46 10*6/uL (4.10-5.10); RED CELL DISTRI WIDTH 14.3 % (0-14.5); WHITE BLOOD COUNT 12.9 10*3/uL (4.8-10.8)
[2019-02-22 06:38] LABS: POTASSIUM 3.8 mmol/L (3.5-5.1); TOTAL PROTEIN 7.2 gm/dL (6.4-8.2)
[2019-02-22 06:44] LABS: ALBUMIN 3.2 gm/dl (3.1-4.5); CREATININE 2.04 mg/dL (0.55-1.02); PHOSPHOROUS 3.2 mg/dL (2.5-4.9); PLATELET SUFFICIENCY NORMAL (NORMAL); THYROID STIM HORMONE (HS) 0.166 uIU/ml (0.358-4.75); TOTAL CELLS COUNTED 100 #CELLS
[2019-02-22 06:59] LABS: INTERNATIONAL NORM RATIO 2.9 (2.0-3.5)
[2019-02-22 07:47] LABS: VITAMIN D, 25-HYDROXY 52.7 ng/mL (30-100)
[2019-02-22 08:00] VITALS: BP 118/50
[2019-02-22 12:00] VITALS: BP 140/70
[2019-02-22 16:00] VITALS: BP 134/65
[2019-02-22 20:00] VITALS: BP 144/69
[2019-02-23] VITALS: BP 133/73
[2019-02-23 06:35] LABS: INTERNATIONAL NORM RATIO 4.4 (2.0-3.5)
[2019-02-23 07:00] LABS: CREATININE 1.78 mg/dL (0.55-1.02); POTASSIUM 3.9 mmol/L (3.5-5.1)
[2019-02-23 07:08] LABS: FREE T4 1.08 ng/dl (0.76-1.46); THYROID STIM HORMONE (HS) 0.079 uIU/ml (0.358-4.75)
[2019-02-23 08:00] VITALS: BP 131/97
[2019-02-23 12:00] VITALS: BP 133/66
[2019-02-23 16:00] VITALS: BP 137/86
[2019-02-23 16:35] LABS: BILIRUBIN NEGATIVE (NEGATIVE); BLOOD NEGATIVE (NEGATIVE); CLARITY SL CLOUDY (CLEAR); COLOR YELLOW (YELLOW); GLUCOSE NEGATIVE (NEGATIVE); KETONE NEGATIVE (NEGATIVE); LEUKO ESTERASE 1+ (NEGATIVE); NITRITE NEGATIVE (NEGATIVE); UROBILINOGEN 0.2 E.U./dl (0.2-1.0)
[2019-02-23 16:45] LABS: BACTERIA 2+; EPITHELIAL CELLS 21-30; WBC 16-20 wbc/hpf (0-5)
[2019-02-23 20:00] VITALS: BP 155/87
[2019-02-24] VITALS: BP 153/89
[2019-02-24 06:56] LABS: HEMOGLOBIN 11.9 g/dl (12.0-16.0); MEAN CELL VOLUME 92.5 fl (81.0-99.0); MEAN CORPUSCULAR HGB CONC 31.3 g/dl (33.0-37.0); MEAN PLATELET VOLUME 11.3 fl (9.6-12.3); PLATELET COUNT AUTOMATED 145 10*3/uL (130-400); RED BLOOD COUNT 4.11 10*6/uL (4.10-5.10); WHITE BLOOD COUNT 16.5 10*3/uL (4.8-10.8)
[2019-02-24 07:23] LABS: PLATELET SUFFICIENCY NORMAL (NORMAL); TOTAL CELLS COUNTED 100 #CELLS
[2019-02-24 07:28] LABS: POTASSIUM 4.2 mmol/L (3.5-5.1)
[2019-02-24 07:32] LABS: INTERNATIONAL NORM RATIO 4.5 (2.0-3.5)
[2019-02-24 07:46] LABS: ALBUMIN 3.1 gm/dl (3.1-4.5); CREATININE 1.75 mg/dL (0.55-1.02); TOTAL PROTEIN 6.7 gm/dL (6.4-8.2)
[2019-02-24 08:00] VITALS: BP 148/72
[2019-02-24] MEDS ORDERED: AVPAK AZITHROM250 MG PO (13:51)
[2019-02-24] MEDS ORDERED: XARELTO20 M1 PO (13:51)
[2019-02-24] MEDS ORDERED: PREDNISONE10 MG PO (13:51)
== END 2019-02-24 15:08 | disposition home or self-care (01) | DRG 190 ==
LOC: ED 12:52 → 5E 14:45 → EDHOLD 14:45 → 5E 15:07
PROVIDERS: Emergency Medicine; Internal Medicine; Internal Medicine Nephrology; Student in an Organized Health Care Education/Training Program; ADMIT Emergency Medicine
DX: J44.0 Chronic obstructive pulmonary disease with (acute) lower respiratory infection (principal); N17.0 Acute kidney failure with tubular necrosis; D68.59 Other primary thrombophilia; J44.1 Chronic obstructive pulmonary disease with (acute) exacerbation; J20.9 Acute bronchitis, unspecified; N18.9 Chronic kidney disease, unspecified; R79.89 Other specified abnormal findings of blood chemistry; E55.9 Vitamin D deficiency, unspecified; I13.10 Hypertensive heart and chronic kidney disease without heart failure, with stage 1 through stage 4 chronic kidney disease, or unspecified chronic kidney disease; E66.09 Other obesity due to excess calories; M15.9 Polyosteoarthritis, unspecified; D72.9 Disorder of white blood cells, unspecified; E78.5 Hyperlipidemia, unspecified; D72.810 Lymphocytopenia; E78.00 Pure hypercholesterolemia, unspecified; F17.210 Nicotine dependence, cigarettes, uncomplicated; M10.9 Gout, unspecified; Z87.01 Personal history of pneumonia (recurrent); Z82.49 Family history of ischemic heart disease and other diseases of the circulatory system; Z71.6 Tobacco abuse counseling; Z80.3 Family history of malignant neoplasm of breast; Z79.899 Other long term (current) drug therapy; Z79.01 Long term (current) use of anticoagulants; Z68.32 Body mass index [BMI] 32.0-32.9, adult

== ENCOUNTER → 2019-05-06 | Outpatient (CLI) | payer MEDICARE ==
[~2019-05-06] MED LIST changes: +ATORVASTATIN CA20 M1 PO; +AVPAK AZITHROM250 MG PO; +Coumadin5 MG PO; +DILTIAZEM ER240 M1 PO; +JANTOVEN6 M1 PO; +PREDNISONE10 MG PO; +XARELTO20 M1 PO
== END | disposition home or self-care (01) ==
LOC: RESCLI 00:16
DX: I10 Essential (primary) hypertension (principal); J44.9 Chronic obstructive pulmonary disease, unspecified; E78.5 Hyperlipidemia, unspecified; M1A.0610 Idiopathic chronic gout, right knee, without tophus (tophi); M13.0 Polyarthritis, unspecified; N17.9 Acute kidney failure, unspecified; Z86.2 Personal history of diseases of the blood and blood-forming organs and certain disorders involving the immune mechanism; Z79.899 Other long term (current) drug therapy; Z88.8 Allergy status to other drugs, medicaments and biological substances

== ENCOUNTER → 2019-08-18 | Outpatient (CLI) | payer MEDICARE ==
[2019-08-18 12:08] LABS: ALBUMIN 3.3 gm/dl (3.1-4.5); CREATININE 1.79 mg/dL (0.55-1.02); POTASSIUM 4.2 mmol/L (3.5-5.1); TOTAL PROTEIN 7.5 gm/dL (6.4-8.2)
== END | disposition home or self-care (01) ==
LOC: RESCLI 01:03
PROVIDERS: Student in an Organized Health Care Education/Training Program
DX: D68.59 Other primary thrombophilia (principal); I10 Essential (primary) hypertension; E78.5 Hyperlipidemia, unspecified; E55.9 Vitamin D deficiency, unspecified; N17.9 Acute kidney failure, unspecified; Z79.899 Other long term (current) drug therapy

== ENCOUNTER → 2019-10-27 | Outpatient (CLI) | payer MEDICARE, OTHER | END | disposition home or self-care (01) | LOC: RESCLI 00:51 | DX: Z12.31 Encounter for screening mammogram for malignant neoplasm of breast (principal); I12.9 Hypertensive chronic kidney disease with stage 1 through stage 4 chronic kidney disease, or unspecified chronic kidney disease; N18.9 Chronic kidney disease, unspecified; E78.5 Hyperlipidemia, unspecified; E55.9 Vitamin D deficiency, unspecified; D68.59 Other primary thrombophilia; M13.0 Polyarthritis, unspecified; M10.9 Gout, unspecified; J44.9 Chronic obstructive pulmonary disease, unspecified; F17.200 Nicotine dependence, unspecified, uncomplicated; Z12.11 Encounter for screening for malignant neoplasm of colon; Z79.899 Other long term (current) drug therapy; Z12.4 Encounter for screening for malignant neoplasm of cervix; Z87.81 Personal history of (healed) traumatic fracture ==

== ENCOUNTER → 2020-03-23 | Outpatient (CLI) | payer MEDICARE | END | disposition home or self-care (01) | LOC: RESCLI 13:51 | DX: Z51.81 Encounter for therapeutic drug level monitoring (principal); D68.59 Other primary thrombophilia; I10 Essential (primary) hypertension; E78.5 Hyperlipidemia, unspecified; E66.9 Obesity, unspecified ==

== ENCOUNTER → 2021-05-15 | Outpatient (CLI) | payer MEDICARE, OTHER | END | disposition home or self-care (01) | LOC: RESCLI 13:56 | PROVIDERS: ATTEND Internal Medicine Nephrology | DX: D68.59 Other primary thrombophilia (principal); I12.9 Hypertensive chronic kidney disease with stage 1 through stage 4 chronic kidney disease, or unspecified chronic kidney disease; N18.30 Chronic kidney disease, stage 3 unspecified; J44.9 Chronic obstructive pulmonary disease, unspecified; E78.5 Hyperlipidemia, unspecified; F17.210 Nicotine dependence, cigarettes, uncomplicated; Z79.899 Other long term (current) drug therapy ==

== ENCOUNTER → 2022-03-15 | Outpatient (CLI) | payer MEDICARE, OTHER ==
[2022-03-15 08:51] LABS: BASO % 0.6 % (0.0-1.0); EOS # 0.2 10*3/uL (0.0-0.4); EOS % 2.6 % (1.0-4.0); HEMATOCRIT 41.8 % (37.0-47.0); LYMPH # 1.2 10*3/uL (1.3-4.4); LYMPH % 17.6 % (27.0-41.0); MEAN CELL VOLUME 91.7 fl (81.0-99.0); MEAN CORPUSCULAR HGB 29.2 pg (27.0-31.0); MEAN CORPUSCULAR HGB CONC 31.8 g/dl (33.0-37.0); MEAN PLATELET VOLUME 10.2 fl (9.6-12.3); MONO # 0.5 10*3/uL (0.1-1.0); MONO % 7.8 % (3.0-9.0); NEUT # 4.7 10*3/uL (2.3-7.9); NEUT % 71.2 % (47.0-73.0); PLATELET COUNT AUTOMATED 193 10*3/uL (130-400); RED BLOOD COUNT 4.56 10*6/uL (4.10-5.10); RED CELL DISTRI WIDTH 15.4 % (0-14.5); WHITE BLOOD COUNT 6.5 10*3/uL (4.8-10.8)
[2022-03-15 09:09] LABS: CREATININE 1.67 mg/dL (0.55-1.02); POTASSIUM 4.6 mmol/L (3.5-5.1); TOTAL PROTEIN 7.6 gm/dL (6.4-8.2)
== END | disposition home or self-care (01) ==
LOC: RESCLI 08:26
PROVIDERS: Internal Medicine; ATTEND Emergency Medicine
DX: I12.9 Hypertensive chronic kidney disease with stage 1 through stage 4 chronic kidney disease, or unspecified chronic kidney disease (principal); N18.30 Chronic kidney disease, stage 3 unspecified; E78.5 Hyperlipidemia, unspecified; D68.59 Other primary thrombophilia; F17.200 Nicotine dependence, unspecified, uncomplicated; E66.9 Obesity, unspecified; Z79.01 Long term (current) use of anticoagulants; Z79.899 Other long term (current) drug therapy

== ENCOUNTER → 2022-04-20 | Day surgery (SDC) | payer MEDICARE, OTHER ==
[~2022-04-20] VITALS: Ht 160 cm; Wt 63.5 kg
[2022-04-20 07:40] VITALS: BP 135/91
[2022-04-20 08:58] VITALS: BP 146/93
[2022-04-20 09:13] VITALS: BP 146/90
[2022-04-20 09:28] VITALS: BP 162/73
== END | disposition home or self-care (01) ==
LOC: SDC 04-16 08:45
PROVIDERS: ATTEND Surgery
DX: Z12.11 Encounter for screening for malignant neoplasm of colon (principal); K57.30 Diverticulosis of large intestine without perforation or abscess without bleeding; I10 Essential (primary) hypertension; E78.00 Pure hypercholesterolemia, unspecified; J44.9 Chronic obstructive pulmonary disease, unspecified; I48.91 Unspecified atrial fibrillation; M10.9 Gout, unspecified; F17.210 Nicotine dependence, cigarettes, uncomplicated; Z79.899 Other long term (current) drug therapy

== ENCOUNTER → 2024-04-28 | Outpatient (CLI) | payer MEDICARE, OTHER | END | disposition home or self-care (01) | LOC: RESCLI 11:05 | PROVIDERS: ATTEND Internal Medicine | DX: I12.9 Hypertensive chronic kidney disease with stage 1 through stage 4 chronic kidney disease, or unspecified chronic kidney disease (principal); N18.4 Chronic kidney disease, stage 4 (severe); D68.59 Other primary thrombophilia; J44.9 Chronic obstructive pulmonary disease, unspecified; F17.210 Nicotine dependence, cigarettes, uncomplicated; Z98.890 Other specified postprocedural states; Z79.899 Other long term (current) drug therapy; Z79.01 Long term (current) use of anticoagulants; F10.90 Alcohol use, unspecified, uncomplicated; Y90.9 Presence of alcohol in blood, level not specified ==